=== PATIENT | female | born 2000 | race Caucasian/White ===

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

== ENCOUNTER 2018-01-01 07:48 | Emergency (ER) | payer BC ==
[~2018-01-01] VITALS: Ht 147.3 cm; Wt 45.5 kg
[2018-01-01 07:50] VITALS: BP 134/80; TEMP 97.6
[2018-01-01] MEDS ORDERED: ZOLOFT 50MG50 MG PO (07:53)
[2018-01-01] MEDS ORDERED: HUMIRA40 MG/0.8 SQ (07:59)
[2018-01-01 08:31] LABS: COLLECTION METHOD CLEAN CATCH
[2018-01-01 08:34] LABS: BASO % 0.2 % (0.0-2.0); EOS % 0.1 % (0-4.0); GRAN # 11.3 (1.4-6.5); GRAN % 84.8 % (42.2-75.2); HEMATOCRIT 41.9 % (35.0-45.0); HEMOGLOBIN 13.9 g/dl (12.0-15.0); LYMPH # 1.4 (1.2-3.4); LYMPH % 10.7 % (20.0-51.0); MEAN CELL VOLUME 91 fl (80.0-95.0); MEAN CORPUSCULAR HEMOGLOBIN 30 pg (26.0-32.0); MEAN CORPUSCULAR HGB CONC 33 g/dl (33.0-37.0); MEAN PLATELET VOLUME 10.5 fl (7.4-10.4); MONO # 0.5 (0.1-0.6); PLATELET COUNT 316 K/mm3 (130-400); RED BLOOD COUNT 4.62 M/mm3 (4.10-5.30); REDCELL DISTRIBUTION WIDTH-CV 12.5 % (11.5-14.5)
[2018-01-01 08:42] LABS: AMORPHOUS CRYSTAL Present /uL; MUCOUS Present /lpf; PH 7 (5-8); SQUAMOUS EPITHELIAL 0-2 /hpf; URINE APPEARANCE Turbid; URINE BACTERIA None Seen /hpf; URINE BILIRUBIN Negative (NEGATIVE); URINE BLOOD Negative (NEGATIVE); URINE COLOR Yellow; URINE GLUCOSE Negative (NEGATIVE); URINE KETONE Negative (NEGATIVE); URINE LEUKOCYTE ESTERASE Trace (NEGATIVE); URINE NITRATE Negative (NEGATIVE); URINE PROTEIN(semi-quant) Negative (NEGATIVE); URINE UROBILINOGEN Negative (NEGATIVE)
[2018-01-01 08:46] LABS: ALBUMIN 4.5 gm/dL (3.5-5.0); BILIRUBIN,TOTAL 0.7 mg/dL (0.0-1.0); CREATININE, serum 0.67 mg/dL (0.52-1.25); POTASSIUM 3.9 mmol/L (3.4-5.0); TOTAL PROTEIN 7.7 gm/dL (6.4-8.2)
[2018-01-01 08:47] LABS: C-REACTIVE PROTEIN 0.5 mg/dL (0.0-0.9)
[2018-01-01] MEDS ORDERED: ZOFRAN 4MG T4 MG/TAB PO (08:57)
[2018-01-01 10:40] VITALS: PULSE 65
== END 2018-01-01 10:40 | disposition home or self-care (01) ==
LOC: COL.ER 07:48
PROVIDERS: Physician Assistant Medical
DX: K52.9 Noninfective gastroenteritis and colitis, unspecified (principal); K50.90 Crohn's disease, unspecified, without complications; Z98.890 Other specified postprocedural states; F41.9 Anxiety disorder, unspecified
CPT/HCPCS: J1885; J2405; J7030